=== PATIENT | female | born 1955 | race Caucasian/White ===

== ENCOUNTER 2021-05-13 13:54 | Emergency (ER) | payer OTHER ==
[~2021-05-13] VITALS: Ht 152.4 cm; Wt 59.9 kg
[2021-05-13 14:14] VITALS: BP 150/79
--- NOTE | 2021-05-13 14:18 | NUR ---
PATIENT AMBULATED TO BED 4, STEADY GAIT
[2021-05-13 16:40] VITALS: BP 150/79
== END 2021-05-13 16:40 | disposition home or self-care (01) ==
LOC: MED 13:54
DX: M25.511 Pain in right shoulder (principal); E11.9 Type 2 diabetes mellitus without complications
CPT/HCPCS: 73030; 99283